=== PATIENT | female | born 1940 | race Caucasian/White ===

== ENCOUNTER 2016-07-08 10:00 | Inpatient (IN) | payer MEDICARE, OTHER ==
[2016-07-04 15:49] LABS: HEMOGLOBIN 11.9 g/dL (12.0-16.0)
[2016-07-04 16:22] LABS: BUN (BLOOD UREA NITROGEN) 11 MG/DL (6-23); CALCIUM, SERUM 9.5 MG/DL (8.5-10.4); CHLORIDE, SERUM 108 MMOL/L (96-112); CO2 (CARBON DIOXIDE) 30 MMOL/L (24-34); CREATININE 0.71 MG/DL (0.55-1.02); GFR AFRICAN AMERICAN 96 ML/MIN (>=60); GFR NON AFRICAN AMERICAN 83 ML/MIN (>=60); GLUCOSE, SERUM 159 MG/DL (60-99); POTASSIUM, SERUM 3.5 MMOL/L (3.5-5.3); SODIUM, SERUM 146 MMOL/L (135-148)
--- NOTE | ~2016-07-08 | DS ---
Discharge Summary [facility] [address] [place]. [address] NAME: NESTOR DOOLEY : 40 STATUS : DIS IN PAT#: [id number] AGE: 76 ADM/REG DATE : 07/08/16 MR#: [id number] REPORT SERV DATE: 07/24/16 DICTATED BY: ALONZO ORTIZ DATE: 07/23/16 REPORT STATUS : Draft TRANSCRIBED BY: THERESE DATE: 07/23/16 Data Collection from hospitalization DISCHARGE DIAGNOSES: 1. L4-L5 disk disease and stenosis. 2. L4-L5 spondylolisthesis. 3. Lumbar radiculopathy. 4. Hypertension. 5. Osteoarthritis. 6. Fibromyalgia. 7. Rheumatoid arthritis. 8. Gastric reflux. 9. Osteoporosis. 10.Hypercholesterolemia. 11.Gastric ulcers. 12.History of breast cancer. 13.Obstructive sleep apnea. 14.Obesity. CONSULTATIONS: Leonor Garcia NP and Dr. Michi Medina. PROCEDURES PERFORMED: L4-L5 transforaminal lumbar interbody fusion from the right side; placement of Medtronic PEEK interbody spacer L4-L5; use of local morcellized autograft; use of allograft bone matrix, neuromonitoring, intraoperative O-arm CT scan with computer navigation; pedicle screw placement percutaneously L4-L5, bilaterally using Medtronic pedicle screws; use of bone morphogenetic protein, minimal access spine technology and operative microscope, 07/08/2016. PATHOLOGY: Lumbar spine repair-fragmented bone cartilage and soft tissue. No evidence was seen of an infectious or neoplastic process. MEDICATIONS: Vitamin C 1500 mg every day at bedtime, Lipitor 40 mg at bedtime, B Complete one tablet daily, Coreg 3.125 mg at bedtime, cod liver oil one capsule daily, Flexeril 10 mg every eight hours as needed, Aimee 180 mg every morning, Neurontin 600 mg three times a day, Osteo Bi-Flex one tablet every morning, Cozaar 100 mg every morning, fish oil 1000 mg every morning, Prilosec 20 mg twice a day, Percocet 5/325 one to two tablets every four hours as needed. CONDITION AT DISCHARGE: Stable. DISPOSITION: The patient was discharged home on a regular diet with activities as instructed. She would follow up with Stephan Jackson, 07/23/2016. HOSPITAL COURSE: This is a 76-year-old female, who had intractable back and leg pain. She had failed multiple attempts at conservative treatment. The patient has L4-L5 disk disease and stenosis as well as L4-L5 spondylolisthesis and lumbar radiculopathy. Treatment options were discussed and it was elected to proceed with surgical intervention. She was admitted to the hospital at this time for further evaluation and treatment. Discharge Summary [address] [place]. [address] NAME: NESTOR DOOLEY : 40 STATUS : DIS IN PAT#: [id number] AGE: 76 ADM/REG DATE : 07/08/16 MR#: [id number] REPORT SERV DATE: 07/24/16 DICTATED BY: ALONZO ORTIZ DATE: 07/23/16 REPORT STATUS : Draft TRANSCRIBED BY: THERESE DATE: 07/23/16 Upon admission, she was taken to the operating room, where she underwent the above-mentioned procedure. She tolerated this well and there were no complications. Postoperatively, she was seen by Leonor Garcia regarding hypertension and sleep apnea. White blood cell count was 10.3. She had an EKG on 07/04/2016 that showed normal sinus rhythm with a rate of 76 with nonspecific T-wave abnormalities. She is on blood pressure medication. Her blood pressure was 125/69. Her home medications of Coreg and losartan were going to be continued. Hydralazine would be given as needed if her blood pressure was over 165. Creatinine level was 0.59. She said she never had the official diagnosis of sleep apnea. She does snore at home at times. Her family had not noticed any apneic situation. She was going to be placed on O2 to keep her saturation 92% or greater. She would be on continuous O2 saturation monitoring while she was on a STAFF ACCOUNTANT morphine for pain control. She is on an inhaler at home as needed, which she said was Symbicort. We were going to allow for albuterol nebulizers as needed for shortness of breath or wheezing. She has a history of ulcers and diverticulitis. Protonix was continued. Lipitor was continued for her hypercholesterolemia. Her Neurontin was continued for neuropathy. On postop day one, she did complain of some back pain. She was using the STAFF ACCOUNTANT. Chest x-ray showed bibasilar atelectasis. O2 was being weaned. We encouraged her to mobilize. On postop day two, she said she was feeling somewhat better. She was not ambulating thus far. ARB and Coreg would be held with parameters. Overnight oximetry was going to be performed. She was evaluated by Physical Therapy. On 07/11/2016, she had some postoperative urinary retention. Cope catheter had been placed. She has no history of heart disease. Coreg was stopped. On 04/14/2016, she was seen by Dr. Michi Medina regarding renal cyst, renal stones, and urinary retention. The patient claims to have no preoperative voiding dysfunction whatsoever. She did state that she has a cyst on the left kidney and a kidney stone in her right kidney. She was not having any flank pain. She had no hematuria. White count was 11. It was felt that the urinary retention after a major surgery was not uncommon, especially in elderly population. He recommended leaving the Cope catheter in place until Thursday at which time, she would undergo a voiding trial. It was okay for her to be discharged with the Cope. If she was discharged with the Cope, she would follow up with him in the clinic for Cope removal. With regard to the renal cyst and renal calculi, it was unclear of the severity of the situation. Regardless, it was felt that these were likely not acute, a CT scan would be performed as an outpatient to better evaluate her renal cyst and renal stone. Her pain was controlled. She had not had a bowel movement in several days. Laxatives were given. Blood pressure medications were on hold. The following day, she had multiple bowel movements. Laxatives were decreased. Blood pressure medications were still on hold. Discharge planning was performed. Lipitor and Protonix were continued. On 07/14/2016, she wanted to go home and did not want to go to rehab. She was alert and cooperative. Discharge instructions were given. Due to her improved and stable condition, she was discharged home with the above-stated instructions. Information collected by: Mallory Thomas I submit the above information as my discharge summary. Discharge Summary [place] [id number] [place] [place]. [address] NAME: NESTOR DOOLEY : 40 STATUS : DIS IN [facility]#: [id number] AGE: 76 ADM/REG DATE : 07/08/16 MR#: [id number] REPORT SERV DATE: 07/24/16 DICTATED BY: ALONZO ORTIZ DATE: 07/23/16 REPORT STATUS : Draft TRANSCRIBED BY: MODL DATE: 07/23/16 TG/THERESE Alonzo Ortiz DO / [id number] CC: DO JEREMIAH Winters NATHAN Jeffrey K. Mullins, MD
--- NOTE | ~2016-07-08 | PREOPHP ---
PreOp History and Physical [place] [address] [facility] [place]. [address] NAME: NESTOR DOOLEY : 40 STATUS : ADM IN PAT#: [id number] AGE: 76 ADM/REG DATE : 07/08/16 MR#: [id number] REPORT SERV DATE: 07/08/16 DICTATED BY: ALONZO ORTIZ DATE: 07/08/16 REPORT STATUS : Draft TRANSCRIBED BY: THERESE DATE: 07/08/16 CHIEF COMPLAINT: Back pain and bilateral lower extremity pain. HISTORY OF PRESENT ILLNESS: The patient is a pleasant 76-year-old with intractable back and leg pain. Failed multiple attempts at conservative treatment, and after discussion of risks and benefits and neurologic decline, elected to proceed with surgical intervention. REVIEW OF SYSTEMS: She denies chest pain, shortness of breath, and bowel or bladder changes. ALLERGIES: ADHESIVES, CODEINE, DARVON, IBUPROFEN, CONTRAST DYE, AND SULFA. HOME MEDICATIONS: Aimee, atorvastatin, calcium, carvedilol, cod liver oil, multivitamin, Neurontin, glucosamine, grape seed, Hemocyte, hydrochlorothiazide, losartan, Mobic, nitrofurantoin, olive leaf extract, omega-3, omeprazole, shark cartilage, Symbicort, tramadol, triazolam, vitamin B12, vitamin C. FAMILY HISTORY: Noncontributory. PAST MEDICAL HISTORY: Osteoarthritis, fibromyalgia, rheumatoid arthritis, hypertension, gastric ulcers, high cholesterol, osteoporosis, gastric reflux. PHYSICAL EXAMINATION: VITAL SIGNS: Height is 4 feet 11 inches, weight 155, BMI 31.3. GENERAL: The patient is healthy appearing, no acute distress. PSYCH: Alert and oriented x3. Normal mood and affect. Gait is antalgic. VASCULAR: No extremity swelling. SPINE: Decreased lumbar motion. HEART: Regular rate and rhythm. LUNGS: Clear to auscultation. ABDOMEN: Soft, nontender, nondistended. Good bowel sounds. BREASTS AND RECTAL: Both deferred. NEUROLOGIC: Strength in the lower extremities remain intact with 5/5 strength with the legs to give out with walking. IMAGING: I have reviewed the MRI of the lumbar spine. The patient has L4-5 disk disease and rather severe stenosis with nerve compression. ASSESSMENT: L4-5 disk disease and stenosis, lumbar radiculopathy, intractable back and leg pain, failed conservative treatment. PLAN: The patient presents today for surgical intervention. Consent was obtained. All questions answered. The patient is ready to proceed with surgery. DANII/THERESE PreOp History and Physical [address] [place]. [address] NAME: NESTOR DOOLEY : 40 STATUS : ADM IN [facility]#: [id number] AGE: 76 ADM/REG DATE : 07/08/16 MR#: [id number] REPORT SERV DATE: 07/08/16 DICTATED BY: ALONZO ORTIZ DATE: 07/08/16 REPORT STATUS : Draft TRANSCRIBED BY: THERESE DATE: 07/08/16 Alonzo Ortiz DO / [id number] CC: DO Pj Winters Nathan
--- NOTE | ~2016-07-08 | CN ---
Consultation Report [facility] [address] [place]. [address] NAME: NESTOR ALEXANDER : 40 STATUS : ADM IN [facility]#: [id number] AGE: 76 ADM/REG DATE : 07/08/16 MR#: [id number] REPORT SERV DATE: 07/12/16 DICTATED BY: BOO MEDINA DATE: 07/11/16 REPORT STATUS : Draft TRANSCRIBED BY: MODLisbet DATE: 07/11/16 CONSULTATION DATE OF CONSULTATION: 07/11/2016 REASON FOR CONSULTATION: 1. Renal cyst. 2. Renal stone. 3. Urinary retention. HISTORY OF PRESENT ILLNESS: Ms. Alexander is a very pleasant, 76-year-old female who is status post a major back operation approximately three days ago. She has done well postoperatively. Postoperatively, she was found to have urinary retention. She had several catheters placed in an out, had her final catheter placed yesterday. She claims to have no preoperative voiding dysfunction whatsoever. She does state she has a cyst on her left kidney and a kidney stone in her right kidney. She is not having flank pain. She has no family history of genitourinary malignancy. She has no hematuria. She is unsure the complexity of her renal cyst. I have been asked to consult given these constellation of urologic findings. PAST MEDICAL HISTORY: Cataracts, hypercholesterolemia, hypertension, rheumatoid arthritis, osteoarthritis or myalgias, back pain, diverticulitis, GERD, kidney stones, menopause, anemia, gastric ulcers, osteoporosis, and sleep apnea. PAST SURGICAL HISTORY: Back surgery. Carpal tunnel surgery, tonsillectomy, adenoidectomy, left breast surgery, tubal ligation, removal of benign back tumor. HOME MEDICATIONS: Reviewed and listed in the chart. ALLERGIES: TO SULFA, CODEINE, CONTRAST, DARVON, LORTAB, IBUPROFEN, AND ADHESIVE TAPE. SOCIAL HISTORY: She is . She does not smoke drink or use illegal drugs. She is previous smoker. FAMILY HISTORY: Noncontributory. REVIEW OF SYSTEMS: A 12-point review of systems was performed, and pertinent positives are listed in the HPI. PHYSICAL EXAMINATION: VITAL SIGNS: Temperature is 98.4, pulse 77, blood pressure is 88/51, saturating 93% on 1 L nasal cannula. Pulse is regular in rate and rhythm. GENERAL: She is in no acute distress. She appears her stated age. HEENT: Head is normocephalic and atraumatic. Consultation Report [address] [place] [place]. [address] NAME: NESTOR ALEXANDER : 40 STATUS : ADM IN PAT#: [id number] AGE: 76 ADM/REG DATE : 07/08/16 MR#: [id number] REPORT SERV DATE: 07/12/16 DICTATED BY: BOO MEDINA DATE: 07/11/16 REPORT STATUS : Draft TRANSCRIBED BY: MODL DATE: 07/11/16 LUNGS: Breathing is nonlabored. She is not in respiratory distress. ABDOMEN: Soft, nontender, nondistended. She has no CVA tenderness. NEUROLOGIC: She is alert and oriented x3. : A Cope catheter is in place. The urine was clear. EXTREMITIES: There is no cyanosis or edema. IMAGING: No pertinent imaging. LABORATORY DATA: White count 11, hemoglobin 10.2, creatinine is 0.75. ASSESSMENT AND PLAN: 1. Renal calculi. 2. Renal cyst. 3. Acute urinary retention. Ms. Alexander has acute urinary retention after a major surgery. It is not uncommon especially in elderly population. I recommend leaving the Cope catheter until Thursday at which time, she will have a voiding trial. She is okay to be discharged with the Cope. If she is discharged with the Cope, she can follow up with me in clinic for Cope removal, one number is [phone]. With regard to the renal cyst and renal calculi, it is unclear the severity of the situation. Regardless, they are likely not acute. We will get a CT scan as an outpatient to better evaluate her renal cyst and renal stone. Thank you for this consultation. Please call with further questions. DORINDA/THERESE Boo Medina MD / [id number] CC: MD Carlos Manuel Forte
--- NOTE | ~2016-07-08 | OP ---
Record Of Operation [facility] [address] [place]. [address] NAME: NESTOR DOOLEY : 40 STATUS : ADM IN PAT#: [id number] AGE: 76 ADM/REG DATE : 07/08/16 MR#: [id number] REPORT SERV DATE: 07/08/16 DICTATED BY: ALONZO ORTIZ DATE: 07/08/16 REPORT STATUS : Draft TRANSCRIBED BY: MODL DATE: 07/08/16 DATE OF PROCEDURE: 07/08/2016 PREOPERATIVE DIAGNOSES: L4-L5 disk disease and stenosis, L4-L5 spondylolisthesis, lumbar radiculopathy. POSTOPERATIVE DIAGNOSES: L4-L5 disk disease and stenosis, L4-L5 spondylolisthesis, lumbar radiculopathy. PROCEDURE: L4-L5 transforaminal lumbar interbody fusion from the right side, placement of Medtronic PEEK interbody spacer L4-L5, use of local morcellized autograft, use of allograft bone matrix, neuromonitoring, intraoperative O-arm CT scan with computer navigation, pedicle screw placement percutaneously L4-L5 bilaterally using Medtronic pedicle screws, use of bone morphogenic protein, minimal access spine technology and operative microscope. SURGEON: Alonzo Ortiz DO. ANESTHESIA: General. ESTIMATED BLOOD LOSS: 300 mL. COMPLICATIONS: None. INDICATIONS: The patient is a pleasant 76-year-old with intractable back and leg pain that failed conservative treatment. After discussion of risks and benefits, elected to undergo surgical intervention. PROCEDURE IN DETAIL: I identified the patient in the holding area. Consent was obtained. Went to the operating room. Underwent general anesthesia with endotracheal intubation. Prepped and draped in the usual sterile fashion. Operative safety pause was performed, then we proceeded with surgery. The O-arm registration frame was placed in the iliac crest. O- arm was brought in for intraoperative CT scan. Computer registration materials were verified. Under computer guidance, longitudinal incision was made on the right side down to the fascial layer. Tube dilators were used to minimally invasively dissect down to the right L4-L5 interspace. Operative microscope was brought in. A lis was used to perform a laminotomy. Drake performed a foraminotomy. Knife was used to incise the disk, and the disk space was prepared with curettes, rasp, and endplate cutters. Irrigation performed. Trial spacers were implanted and then local morcellized autograft, allograft bone matrix, bone morphogenic protein, and Medtronic PEEK interbody spacer with allograft bone matrix were packed into the L4-L5 interspace. O-arm was brought back into repeat the CT scan. Computer registration materials were re-verified and under computer guidance, percutaneous screws were placed bilaterally from Medtronic at L4 and L5. O-arm was brought back to verify good placement of instrumentation. Rods were then reduced down to the screws. Set screws were placed, final tightened. Reduction towers were removed. Irrigation performed. Hemostasis achieved. A gram of vancomycin powder sprinkled over the wounds. Layer closure was performed. Sterile dressings applied. The patient was awoken, extubated, and taken to Record Of Operation [address] [address] NAME: NESTOR DOOLEY : 40 STATUS : ADM IN PAT#: [id number] AGE: 76 ADM/REG DATE : 07/08/16 MR#: [id number] REPORT SERV DATE: 07/08/16 DICTATED BY: ALONZO ORTIZ DATE: 07/08/16 REPORT STATUS : Draft TRANSCRIBED BY: THERESE DATE: 07/08/16 recovery room in stable condition. OPERATIVE FINDINGS: L4-L5 disk disease and stenosis. No sustained neuromonitoring alerts occurred. DANII/THERESE Alonzo Ortiz DO / [id number] CC: DO Carlos Manuel Winters
--- NOTE | ~2016-07-08 | CN ---
Consultation Report [facility] [place]. [address] NAME: NESTOR DOOLEY : 40 STATUS : ADM IN PAT#: [id number] AGE: 76 ADM/REG DATE : 07/08/16 MR#: [id number] REPORT SERV DATE: 07/08/16 DICTATED BY: LUISLEONOR MIO DATE: 07/08/16 REPORT STATUS : Draft TRANSCRIBED BY: MODL DATE: 07/08/16 CONSULTATION DATE OF CONSULTATION: 07/08/2016 REASON FOR CONSULTATION: Consulted for hypertension and sleep apnea. IDENTIFYING DATA: PCP previously was Dr. Russell Ospina who is now . PCP presently is Dr. Carlos Manuel Nayak. Orthopedist in the past was Dr. Venu Cortes II as well as she was seeing Dr. Bhavik Schwarz about her knees and presently she is postop surgery with Dr. Alonzo Ortiz. HISTORY OF PRESENT ILLNESS: This is a pleasant 76-year-old female with a history of hypertension, high cholesterol, diverticulitis, GERD, gastric ulcers, fibromyalgia, low back pain, and a diagnosis of obstructive sleep apnea for which the patient states she has had no formal diagnosis of that with her present physician. The patient presents to orthopedist for spinal stenosis of the lumbar region after intractable back and leg pain and failed attempts at conservative treatments. She is presently status post a bilateral L4-L5 lumbar laminectomy, diskectomy, lateral interbody fusion with cages, and posterolateral fusion with Dr. Alonzo Ortiz. The hospitalist group has been consulted to manage her blood pressure as well as possible sleep apnea. The patient's history was obtained through interview with the patient and her family as well as benefits consultant notes and minimal records noted in [facility] and [facility]. PAST MEDICAL HISTORY: 1. Cataracts. 2. High cholesterol. 3. Hypertension. 4. Rheumatoid and osteoarthritis. 5. Fibromyalgia. 6. Low back pain. 7. Diverticulitis. 8. GERD. 9. Renal calculi. 10.Menopause. 11.Anemia. 12.Gastric ulcers. 13.Osteoporosis. 14.Sleep apnea for which she states there is no official diagnosis, but she does note that she snores when sleeping. Consultation Report [facility] [address]. [address] NAME: NESTOR DOOLEY : 40 STATUS : ADM IN PAT#: [id number] AGE: 76 ADM/REG DATE : 07/08/16 MR#: [id number] REPORT SERV DATE: 07/08/16 DICTATED BY: LEONOR SMITH DATE: 07/08/16 REPORT STATUS : Draft TRANSCRIBED BY: THERESE DATE: 07/08/16 HOME MEDICATIONS: 1. Vitamin C 1500 mg p.o. every day at bedtime. 2. Lipitor 40 mg p.o. at bedtime. 3. B complex with biotin and folic acid one tablet p.o. daily. 4. Coreg 3.125 mg p.o. at h.s. 5. Cod liver oil 1 capsule p.o. daily. 6. Aimee 180 mg p.o. every morning. 7. Neurontin 600 mg p.o. three times daily. 8. Osteo Bi-Flex caplet 1 tablet p.o. every morning. 9. Cozaar 100 mg p.o. every morning. 10.Mobic 15 mg p.o. daily. 11.Groves-3 fatty acid 1000 mg p.o. every morning. 12.Prilosec 20 mg p.o. twice a day. 13.Grape seed extract 2 tablets p.o. every morning. 14.Leeton leaf oral 1 tablet p.o. every morning. 15.Undefined medication known as HiActives sabillon patient states 1 p.o. every morning. 16.White willow bark, which is an undefined medication 1 p.o. every morning. 17.5-HTP 1 p.o. every morning. ALLERGIES: 1. SULFA. 2. CODEINE. 3. IV CONTRAST. 4. DARVON. 5. LORTAB. 6. IBUPROFEN. 7. ADHESIVE. SOCIAL HISTORY: The patient is for 60 years. Has two sons and two daughters, her two daughters are . Lives in a single-level home. She was a previous smoker, quit 40 years ago. No alcohol or illicit drug use. 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 She has three grandchildren and six great grandchildren. FAMILY HISTORY: She had 10 siblings. Her mother was positive for diabetes and hypertension. Her father was positive for polyps and hypertension. PAST SURGICAL HISTORY: 1. IOLI approximately 2003. 2. L4-L5 L-WINSTON on 08/19/2013. 3. Bilateral carpal tunnel surgery greater than 25 years ago. 4. Tonsillectomy and adenoidectomy at 17 years old. 5. Left breast surgery in 2012 for which she had a lumpectomy with radiation at [facility] for breast cancer. 6. Tubal ligation at age [age] years old. Consultation Report [place] [address] [address] [place]. [address] NAME: NESTOR DOOLEY : 40 STATUS : ADM IN PAT#: [id number] AGE: 76 ADM/REG DATE : 07/08/16 MR#: [id number] REPORT SERV DATE: 07/08/16 DICTATED BY: LEONOR SMITH DATE: 07/08/16 REPORT STATUS : Draft TRANSCRIBED BY: THERESE DATE: 07/08/16 7. Benign back tumor at approximately 30 years old. REVIEW OF SYSTEMS: Negative other than what is included in HPI. The patient is alert and oriented x3. No complaints of shortness of breath. No nausea or vomiting. No abdominal pain. No chest pain. No fever. Displays no confusion or agitation. PHYSICAL EXAMINATION: VITAL SIGNS: Blood pressure 125/69, heart rate 75, respiratory rate 17, and O2 saturation 96% on 2 L nasal cannula. GENERAL: This is a 76-year-old female, resting in bed, in no acute distress. She does have her family at bedside. NEUROLOGIC: Her head is atraumatic, normocephalic. She is alert and oriented x3. Her cranial nerves are intact. Her mood is pleasant and appropriate. NECK: Supple. Trachea is midline. No JVD noted. No obvious thyromegaly or lymphadenopathy. EENT: Her sclerae are nonicteric. Pupils are equal and reactive to light. Her nares are patent. Her mucous membranes moist. Her tongue is midline without deviation. Her soft palate rises equally on phonation. She has taken oral fluids presently without any nausea and vomiting. CHEST: No pain with palpation. LUNGS: Clear to auscultation bilaterally. She has normal respiratory effort. She is slightly diminished in the bases. She has no increased work of breathing with conversation. She has been encouraged to use her incentive spirometer every hour 10 times while awake to prevent atelectasis and pneumonia. CARDIOVASCULAR: S1, S2. No obvious murmurs, rubs, or gallops. She displays a regular rhythm per auscultation. She is on defensive monitoring with a heart rate at 75. ABDOMEN: Soft, nontender. She has active bowel sounds. No palpable organomegaly. Last bowel movement noted was on 07/08/2016. EXTREMITIES: Normal distal pulses. No calf tenderness. No edema. She has bilateral TEDs and SCDs in place for DVT prophylaxis. SKIN: Warm and dry. No unusual rashes or lesions. Normal color and turgor for age. Surgical wound site dressing clean, dry and intact. PSYCH: She is pleasant and cooperative, appropriate mood and affect. LABORATORY DATA: Sodium 149, potassium 3.5, chloride 113, BUN 11, creatinine 0.59, GFR 103, glucose 139, calcium 8.6. White blood cell 10.3, hemoglobin 10.8, hematocrit 32.6, and platelets 214. She did have an EKG on 07/04/2016 that showed a normal sinus rhythm with a rate at 76 with nonspecific T-wave abnormality. ASSESSMENT AND PLAN: 1. The hospitalist group has been consulted for hypertension. Presently, she is on blood pressure medication. Her blood pressure is 125/69. We will continue her home Consultation Report [address] [place]. [address] NAME: NESTOR DOOLEY : 40 STATUS : ADM IN [facility]#: [id number] AGE: 76 ADM/REG DATE : 07/08/16 MR#: [id number] REPORT SERV DATE: 07/08/16 DICTATED BY: LEONOR SMITH DATE: 07/08/16 REPORT STATUS : Draft TRANSCRIBED BY: THERESE DATE: 07/08/16 medications of Coreg and her losartan will start in the morning, and she has hydralazine p.r.n. if her systolic blood pressure is greater than 165. Presently, her creatinine is 0.59 today, which would allow for losartan in the a.m. 2. Sleep apnea. The patient states she has never had an official diagnosis of sleep apnea. She states she does snore at home at times. Her family has not noted any apneic situations. We will place her on O2 to keep her sats 92% or greater. She will be on continuous O2 saturation monitoring while she is on a [employer] morphine for pain control, and she is on an inhaler at home p.r.n.. She states which is Symbicort. We will allow for albuterol nebulizers q.6 hours p.r.n. shortness of breath or wheezing. 3. Gastroesophageal reflux disease. The patient does have a history of ulcers and diverticulitis aware. We will continue her dose of Protonix b.i.d. daily. 4. Hypercholesterolemia. Aware. She will be continued on her daily dose of Lipitor. 5. Neuropathy. Aware. The patient's Neurontin will be continued daily. 6. Labs: CMP, magnesium, phosphorus, CBC, hemoglobin A1c, and a portable chest x-ray in the a.m. The hospitalist group would like to thank you for this consultation. Please let us know if we could be of any further assistance. OTTONIEL Leonor Smith NP / [phone] CC: DO Dr. Carlos Manuel Winters
[~2016-07-08 10:00] MED LIST: 5HTP PO; ALLEGRA180 PO; B COMPLETE PO; COD LIVE1 PO; COD LIVER PO; COREG3 PO; COZAAR100 MG PO; FISH-EPA1000 MG PO; GLUCCHONDR PO; GRAPE SEED EXTRACT PO; HCTZ25B PO; HEMOCYTE324 MG PO; LIPITOR40 PO; MOBIC15 MG PO; MOBIC7.5 PO; NEUR100 PO; NEUR300 PO; NEUR600 PO; OSTEO BI-FLEX1 EACH PO; PRILO PO; PRILOSEC40 MG PO; VITC500 PO; [UNRECOGNIZED DRUG - OTHER] PO; [UNRECOGNIZED DRUG - OTHER] PO; [UNRECOGNIZED DRUG - OTHER] PO; [UNRECOGNIZED DRUG - OTHER] PO; [UNRECOGNIZED DRUG - OTHER] PO
[2016-07-08 15:57] LABS: BASOPHILS 0.2 %; BASOPHILS ABSOLUTE 0.02 10/3/uL (0.0-0.16); EOSINOPHILS 3.7 %; EOSINOPHILS ABSOLUTE 0.38 10/3/uL (0.0-0.53); HEMATOCRIT 32.6 % (36.0-48.0); HEMOGLOBIN 10.8 g/dL (12.0-16.0); IMMATURE GRANULOCYTES 0.6 %; IMMATURE GRANULOCYTES ABSOLUTE 0.06 10/3/uL (0.0-0.11); LYMPHOCYTES 15.1 %; LYMPHOCYTES ABSOLUTE 1.56 10/3/uL (0.67-4.30); MANUAL DIFF NO %; MEAN CORPUS HGB CONC 33.1 g/dL (32.0-36.0); MEAN CORPUSCULAR HEMOGLOB 32.7 pg (26.0-34.0); MEAN CORPUSCULAR VOLUME 98.8 fL (80-100); MEAN PLATELET VOLUME 8.8 fL (9.2-13.0); MONOCYTES 4.4 %; MONOCYTES ABSOLUTE 0.45 10/3/uL (0.21-1.20); NEUTROPHILS ABSOLUTE 7.87 10/3/uL (2.02-8.40); PLATELET COUNT 214 10/3/uL (150-400); RBC DISTRIBUTION WIDTH 13.8 % (12.0-16.0); WHITE BLOOD CELLS 10.3 10/3/uL (4.5-10.5)
[2016-07-08 16:11] LABS: BUN (BLOOD UREA NITROGEN) 11 MG/DL (6-23); CALCIUM, SERUM 8.6 MG/DL (8.5-10.4); CHLORIDE, SERUM 113 MMOL/L (96-112); CO2 (CARBON DIOXIDE) 31 MMOL/L (24-34); CREATININE 0.59 MG/DL (0.55-1.02); GFR AFRICAN AMERICAN 103 ML/MIN (>=60); GFR NON AFRICAN AMERICAN 89 ML/MIN (>=60); GLUCOSE, SERUM 139 MG/DL (60-99); POTASSIUM, SERUM 3.5 MMOL/L (3.5-5.3); SODIUM, SERUM 149 MMOL/L (135-148)
[2016-07-09 04:36] LABS: BASOPHILS 0 %; EOSINOPHILS 0 %; HEMATOCRIT 32.1 % (36.0-48.0); HEMOGLOBIN 10.5 g/dL (12.0-16.0); IMMATURE GRANULOCYTES 0.2 %; IMMATURE GRANULOCYTES ABSOLUTE 0.02 10/3/uL (0.0-0.11); LYMPHOCYTES 7.4 %; LYMPHOCYTES ABSOLUTE 0.86 10/3/uL (0.67-4.30); MEAN CORPUS HGB CONC 32.7 g/dL (32.0-36.0); MEAN CORPUSCULAR HEMOGLOB 32.5 pg (26.0-34.0); MEAN CORPUSCULAR VOLUME 99.4 fL (80-100); MEAN PLATELET VOLUME 9.7 fL (9.2-13.0); MONOCYTES 7.6 %; MONOCYTES ABSOLUTE 0.88 10/3/uL (0.21-1.20); NEUTROPHILS 84.8 %; NEUTROPHILS ABSOLUTE 9.88 10/3/uL (2.02-8.40); PLATELET COUNT 226 10/3/uL (150-400); RBC DISTRIBUTION WIDTH 13.8 % (12.0-16.0); RED CELL COUNT 3.23 10/6/uL (4.0-5.6); WHITE BLOOD CELLS 11.6 10/3/uL (4.5-10.5)
[2016-07-09 04:37] LABS: MANUAL DIFF NO %
[2016-07-09 04:49] LABS: A/G RATIO 1.2 (0.7-1.9); ALBUMIN 3.2 G/DL (3.5-5.0); ALKALINE PHOSPHATASE 78 U/L (45-117); BUN (BLOOD UREA NITROGEN) 9 MG/DL (6-23); CALCIUM, SERUM 9.4 MG/DL (8.5-10.4); CHLORIDE, SERUM 109 MMOL/L (96-112); CO2 (CARBON DIOXIDE) 29 MMOL/L (24-34); CREATININE 0.58 MG/DL (0.55-1.02); GFR AFRICAN AMERICAN 104 ML/MIN (>=60); GFR NON AFRICAN AMERICAN 90 ML/MIN (>=60); GLOBULIN 2.6 G/DL (2.5-4.1); GLUCOSE, SERUM 142 MG/DL (60-99); PHOSPHORUS, SERUM 2.6 MG/DL (2.5-4.5); POTASSIUM, SERUM 4.1 MMOL/L (3.5-5.3); SGOT(AST) 25 U/L (5-40); SGPT(ALT) 25 U/L (5-65); SODIUM, SERUM 144 MMOL/L (135-148); TOTAL BILIRUBIN 0.5 MG/DL (0-1.2); TOTAL PROTEIN 5.8 G/DL (6.0-8.5)
[2016-07-10 04:26] LABS: HEMATOCRIT 30.6 % (36.0-48.0); HEMOGLOBIN 9.8 g/dL (12.0-16.0); MEAN CORPUSCULAR HEMOGLOB 32.2 pg (26.0-34.0); MEAN CORPUSCULAR VOLUME 100.7 fL (80-100); MEAN PLATELET VOLUME 9.8 fL (9.2-13.0); PLATELET COUNT 207 10/3/uL (150-400); RBC DISTRIBUTION WIDTH 14.2 % (12.0-16.0); RED CELL COUNT 3.04 10/6/uL (4.0-5.6); WHITE BLOOD CELLS 11.9 10/3/uL (4.5-10.5)
[2016-07-10 04:30] LABS: MANUAL DIFF YES %
[2016-07-10 04:43] LABS: BUN (BLOOD UREA NITROGEN) 11 MG/DL (6-23); CHLORIDE, SERUM 106 MMOL/L (96-112); CO2 (CARBON DIOXIDE) 33 MMOL/L (24-34); CREATININE 0.89 MG/DL (0.55-1.02); GFR AFRICAN AMERICAN 73 ML/MIN (>=60); GFR NON AFRICAN AMERICAN 63 ML/MIN (>=60); POTASSIUM, SERUM 3.6 MMOL/L (3.5-5.3); SODIUM, SERUM 142 MMOL/L (135-148)
[2016-07-10 04:49] LABS: CALCIUM, SERUM 8.3 MG/DL (8.5-10.4); GLUCOSE, SERUM 103 MG/DL (60-99)
[2016-07-10 05:33] LABS: BAND NEUTROPHILS 2 %; IMMATURE GRANS ABSOLUTE (CALC) 0.83 10/3/uL (0.0-0.11); LYMPHOCYTES 17 %; LYMPHOCYTES ABSOLUTE (CALC) 2.02 10/3/uL (0.67-4.30); METAMYELOCYTES 7 %; NEUTROPHILS ABSOLUTE (CALC) 9.04 10/3/uL (2.02-8.40); PLATELET ESTIMATE ADQ (ADEQUATE); RBC MORPHOLOGY NORM (NORMAL); SEGMENTED NEUTROPHIL (0) 74 %; TOTAL NUCLEATED CELLS 100
[2016-07-11 04:55] LABS: BUN (BLOOD UREA NITROGEN) 11 MG/DL (6-23); CALCIUM, SERUM 8.6 MG/DL (8.5-10.4); CHLORIDE, SERUM 106 MMOL/L (96-112); CO2 (CARBON DIOXIDE) 33 MMOL/L (24-34); CREATININE 0.75 MG/DL (0.55-1.02); GFR AFRICAN AMERICAN 90 ML/MIN (>=60); GFR NON AFRICAN AMERICAN 77 ML/MIN (>=60); GLUCOSE, SERUM 101 MG/DL (60-99); POTASSIUM, SERUM 4.2 MMOL/L (3.5-5.3); SODIUM, SERUM 143 MMOL/L (135-148)
[2016-07-11 06:15] LABS: BASOPHILS 0.2 %; BASOPHILS ABSOLUTE 0.02 10/3/uL (0.0-0.16); EOSINOPHILS 3.3 %; EOSINOPHILS ABSOLUTE 0.36 10/3/uL (0.0-0.53); HEMATOCRIT 31.5 % (36.0-48.0); HEMOGLOBIN 10.2 g/dL (12.0-16.0); IMMATURE GRANULOCYTES 0.2 %; IMMATURE GRANULOCYTES ABSOLUTE 0.02 10/3/uL (0.0-0.11); LYMPHOCYTES 18.8 %; LYMPHOCYTES ABSOLUTE 2.07 10/3/uL (0.67-4.30); MEAN CORPUS HGB CONC 32.4 g/dL (32.0-36.0); MEAN CORPUSCULAR HEMOGLOB 32.5 pg (26.0-34.0); MEAN CORPUSCULAR VOLUME 100.3 fL (80-100); MEAN PLATELET VOLUME 9.8 fL (9.2-13.0); MONOCYTES 11.8 %; NEUTROPHILS 65.7 %; NEUTROPHILS ABSOLUTE 7.26 10/3/uL (2.02-8.40); PLATELET COUNT 200 10/3/uL (150-400); RBC DISTRIBUTION WIDTH 14.2 % (12.0-16.0); RED CELL COUNT 3.14 10/6/uL (4.0-5.6)
[2016-07-11 06:16] LABS: MANUAL DIFF NO %
[2016-07-11 18:28] LABS: FOLATE 18.2 NG/ML (>5.2)
[2016-07-12 06:19] LABS: BASOPHILS 0.2 %; BASOPHILS ABSOLUTE 0.02 10/3/uL (0.0-0.16); EOSINOPHILS 5.1 %; EOSINOPHILS ABSOLUTE 0.42 10/3/uL (0.0-0.53); HEMATOCRIT 28.9 % (36.0-48.0); HEMOGLOBIN 9.6 g/dL (12.0-16.0); IMMATURE GRANULOCYTES 0.2 %; IMMATURE GRANULOCYTES ABSOLUTE 0.02 10/3/uL (0.0-0.11); LYMPHOCYTES 13.8 %; LYMPHOCYTES ABSOLUTE 1.13 10/3/uL (0.67-4.30); MANUAL DIFF NO %; MEAN CORPUS HGB CONC 33.2 g/dL (32.0-36.0); MEAN CORPUSCULAR HEMOGLOB 32.5 pg (26.0-34.0); MEAN PLATELET VOLUME 9.2 fL (9.2-13.0); MONOCYTES 11.4 %; MONOCYTES ABSOLUTE 0.93 10/3/uL (0.21-1.20); NEUTROPHILS 69.3 %; NEUTROPHILS ABSOLUTE 5.66 10/3/uL (2.02-8.40); PLATELET COUNT 185 10/3/uL (150-400); RBC DISTRIBUTION WIDTH 13.7 % (12.0-16.0); RED CELL COUNT 2.95 10/6/uL (4.0-5.6); WHITE BLOOD CELLS 8.2 10/3/uL (4.5-10.5)
[2016-07-12 06:32] LABS: BUN (BLOOD UREA NITROGEN) 10 MG/DL (6-23); CALCIUM, SERUM 8.3 MG/DL (8.5-10.4); CHLORIDE, SERUM 106 MMOL/L (96-112); CO2 (CARBON DIOXIDE) 31 MMOL/L (24-34); GFR AFRICAN AMERICAN 98 ML/MIN (>=60); GFR NON AFRICAN AMERICAN 84 ML/MIN (>=60); GLUCOSE, SERUM 101 MG/DL (60-99); POTASSIUM, SERUM 3.6 MMOL/L (3.5-5.3); SODIUM, SERUM 141 MMOL/L (135-148)
[2016-07-14] MEDS ORDERED: FLEX PO (15:03)
[2016-07-14] MEDS ORDERED: PCET PO (15:03)
== END 2016-07-14 18:03 | disposition home or self-care (01) | DRG 460 ==
LOC: SDC/OF 10:00 → 3SO 17:31
PROVIDERS: Hospitalist; Nurse Practitioner; Orthopaedic Surgery
PROC: 0SG00AJ Fusion of Lumbar Vertebral Joint with Interbody Fusion Device, Posterior Approach, Anterior Column, Open Approach (ICD-10-PCS; principal; 2016-07-08 11:45)
PROC: 4A11X4G Monitoring of Peripheral Nervous Electrical Activity, Intraoperative, External Approach (ICD-10-PCS; 2016-07-08 11:45)
DX: M51.16 Intervertebral disc disorders with radiculopathy, lumbar region (principal); I10 Essential (primary) hypertension; N20.0 Calculus of kidney; R33.9 Retention of urine, unspecified; E78.5 Hyperlipidemia, unspecified; M79.7 Fibromyalgia
CPT/HCPCS: 71010; 80048; 80053; 82533; 82607; 82746; 82962; 83036; 83735; 84100; 84443; 85014; 85018; 85025; 87641; 88304; 88311; 93005; 97116-GP; 97161-GP; 97530-GP; A9270-GY; C1713; J0360; J0690; J1644; J2250; J2270; J2370; J2405; J2710; J3010; J3370; P9045